=== PATIENT | female | born 1975 | race Caucasian/White ===

== ENCOUNTER 2016-07-13 09:53 | Emergency (ER) | payer MEDICARE | END 2016-07-13 13:20 | disposition home or self-care (01) | LOC: ER 09:53 | DX: O03.9 Complete or unspecified spontaneous abortion without complication (principal); F17.210 Nicotine dependence, cigarettes, uncomplicated | CPT/HCPCS: 36415 ==

== ENCOUNTER 2016-07-21 09:13 | Emergency (ER) | payer MEDICARE | END 2016-07-21 09:44 | disposition home or self-care (01) | LOC: ER 09:13 | DX: O03.9 Complete or unspecified spontaneous abortion without complication (principal); F31.9 Bipolar disorder, unspecified; F17.210 Nicotine dependence, cigarettes, uncomplicated; Z88.5 Allergy status to narcotic agent; Z3A.10 10 weeks gestation of pregnancy ==